=== PATIENT | female | born 1990 | race Asian ===

== ENCOUNTER 2019-03-04 23:48 | Emergency (ER) | payer BC, OTHER ==
--- NOTE | 2019-03-05 02:51 | ED ---
Lower Extremity - HPI Summary HPI Summary: 28 year old female presents with left ankle pain. States she rolled her ankle and pain over the lateral aspect of the ankle. She is able to ambulate with some pain. No numbness or tingling. No previous fracture to the area. Denies any other injury. - History of Current Complaint Chief Complaint: EDExtremityLower Stated Complaint: POSS SPRAINED LEFT ANKLE PER PT Time Seen by Provider: 03/05/19 02:46 Pain Intensity: 6 - Allergies/Home Medications Allergies/Adverse Reactions: Allergies Allergy/AdvReac Type Severity Reaction Status Date / Time No Known Allergies Allergy Verified 12/21/13 13:16 PMH/Surg Hx/FS Hx/Imm Hx Endocrine/Hematology History: Denies: Hx Diabetes Cardiovascular History: Denies: Hx Congestive Heart Failure, Hx Hypertension, Hx Pacemaker/ICD Respiratory History: Reports: Hx Asthma Musculoskeletal History: Reports: Other Musculoskeletal History - knee sugery Sensory History: Denies: Hx Hearing Aid Psychiatric History: Denies: Hx Panic Disorder - Surgical History Surgery Procedure, Year, and Place: RT ACL REPAIR/APPY 3 MONTHS AGO Infectious Disease History: No Infectious Disease History: Denies: Traveled Outside the [place] in Last 30 Days - Family History Known Family History: Positive: Non-Contributory - Social History Alcohol Use: Occasionally Substance Use Type: Reports: None Review of Systems Negative: Fever Negative: Chest Pain Negative: Shortness Of Breath Positive: Myalgia - left ankle pain All Other Systems Reviewed And Are Negative: Yes Physical Exam Triage Information Reviewed: Yes Vital Signs On Initial Exam: Initial Vitals Temp Pulse Resp BP Pulse Ox 98.2 F 77 16 115/84 98 03/05/19 00:05 03/05/19 00:05 03/05/19 00:05 03/05/19 00:05 03/05/19 00:05 Vital Signs Reviewed: Yes Appearance: Positive: Well-Appearing Skin: Positive: Warm, Dry Head/Face: Positive: Normal Head/Face Inspection Eyes: Positive: Normal, Conjunctiva Clear ENT: Positive: Pharynx normal Respiratory/Lung Sounds: Positive: Clear to Auscultation, Breath Sounds Present Cardiovascular: Positive: Normal, RRR Musculoskeletal: Positive: Strength/ROM Intact - left ankle with pain, Other - tenderness left lateral malleolus, good pulses, able to wiggle toes Neurological: Positive: Normal Psychiatric: Positive: Normal Diagnostics - Vital Signs Vital Signs Temp Pulse Resp BP Pulse Ox 03/05/19 02:40 98.3 F 80 14 97 03/05/19 00:05 98.2 F 77 16 115/84 98 - Laboratory Lab Statement: Any lab studies that have been ordered have been reviewed, and results considered in the medical decision making process. - Radiology ankle Radiology Interpretation Completed By: ED Physician Summary of Radiographic Findings: no fracture Lower Extremity Course/Dx - Course Course Of Treatment: 28 year old female presents with left ankle pain. States she rolled her ankle and pain over the lateral aspect of the ankle. She is able to ambulate with some pain. No numbness or tingling. No previous fracture to the area. Denies any other injury. On exam tenderness over lateral right ankle. Neurovascular intact. X-ray reveals no fracture as read by me. Gave crutches gel splint and windy. Told to ice elevate. Patient understands and agrees with plan. - Diagnoses Differential Diagnosis/HQI/PQRI: Positive: Fracture (Closed), Sprain, Strain Provider Diagnoses: Left ankle injury Discharge - Sign-Out/Discharge Documenting (check all that apply): Patient Departure Patient Received Moderate/Deep Sedation with Procedure: No - Discharge Plan Condition: Good Disposition: HOME Patient Education Materials: [facility] (ED) Referrals: Chepe Moncada MD [Medical Doctor] - Additional Instructions: Stay off ankle as much as possible Ice, elevate, keep in [place] Ibuprofen every 6 hours for pain Follow up with ortho if no improvement Return to ED if develop or any new or worsening symptoms - Billing Disposition and Condition Condition: GOOD Disposition: Home
[2019-03-05 03:04] VITALS: BP 120/64
== END 2019-03-05 03:03 | disposition home or self-care (01) ==
LOC: ED 23:48
DX: S99.912A Unspecified injury of left ankle, initial encounter (principal); X50.1XXA Overexertion from prolonged static or awkward postures, initial encounter; J45.909 Unspecified asthma, uncomplicated
CPT/HCPCS: 99282